=== PATIENT | female | born 1980 | race Caucasian/White ===

== ENCOUNTER 2020-09-25 11:11 | Emergency (ER) | payer OTHER ==
[~2020-09-25] VITALS: Ht 165.1 cm; Wt 78.5 kg
[2020-09-25 11:23] VITALS: BP 89/47
[2020-09-25 13:02] LABS: BILIRUBIN Negative (Negative); BLOOD 1+ (Negative); CLARITY Cloudy (Clear); COLOR Dark Yellow (Yellow); GLUCOSE Negative (Negative); KETONE 1+ (Negative); LEUKO ESTERASE 2+ (Negative); NITRITE Positive (Negative)
[2020-09-25 13:15] LABS: BACTERIA 4+; WBC TNTC wbc/hpf (0-5)
[2020-09-25] MEDS ORDERED: FLAGYL500 MG PO (13:44)
[2020-09-25] MEDS ORDERED: DOXYCYCLINE100 M3 PO (13:44)
== END 2020-09-25 13:55 | disposition home or self-care (01) ==
LOC: ED 11:11
PROVIDERS: Physician Assistant
DX: T19.2XXA Foreign body in vulva and vagina, initial encounter (principal); N39.0 Urinary tract infection, site not specified; Z88.0 Allergy status to penicillin; Z88.6 Allergy status to analgesic agent; Z88.8 Allergy status to other drugs, medicaments and biological substances; X58.XXXA Exposure to other specified factors, initial encounter; Y93.89 Activity, other specified; Y92.89 Other specified places as the place of occurrence of the external cause; Y99.8 Other external cause status

== ENCOUNTER 2022-12-13 17:38 | Emergency (ER) | payer OTHER ==
[~2022-12-13] VITALS: Ht 162.5 cm; Wt 60.3 kg
[~2022-12-13 17:38] MED LIST: DOXYCYCLINE100 M3 PO; FLAGYL500 MG PO
== END 2022-12-13 20:17 | disposition home or self-care (01) ==
LOC: ED 17:38
DX: S00.12XA Contusion of left eyelid and periocular area, initial encounter (principal); S00.33XA Contusion of nose, initial encounter; S00.531A Contusion of lip, initial encounter; S40.012A Contusion of left shoulder, initial encounter; M79.642 Pain in left hand; Z88.0 Allergy status to penicillin; Z88.6 Allergy status to analgesic agent; Z88.8 Allergy status to other drugs, medicaments and biological substances; Z88.5 Allergy status to narcotic agent; Y04.2XXA Assault by strike against or bumped into by another person, initial encounter; Y93.89 Activity, other specified; Y92.89 Other specified places as the place of occurrence of the external cause; Y99.8 Other external cause status